=== PATIENT | male | born 1965 | race Caucasian/White ===

== ENCOUNTER 2025-06-05 07:14 | Outpatient (AMB) | payer OTHER, SELFPAY ==
[2025-06-05 07:17] VITALS: BP 124/58; PULSE 70; RESP 18; TEMP 36.6; O2SAT 97; BMI 26.0
--- NOTE | 2025-06-05 07:17 | MHC.OFFWIV ---
Intake Vital Signs 06/05/25 07:17 Height 5 ft 6 in Weight 161 lb BMI 26.0 BP 124/58 L Blood Pressure Location Rt brachial Position Sitting Respiration 18 Pulse 70 Pulse Source Pulse Oximeter Temp 98 F Temp Source Oral Pulse Oximetry (%) 97 Oxygen Delivery Method Room Air Intake Visit Reasons: [employer]ATIONS cough pain right lung when taking deep breath Intake Note: Patient presents c/o cough, pain in right chest (like a pulled muscle) when taking a deep breath, wheezing x10 days. Patient Tobacco Use Status: Current everyday Tobacco user Allergies No Known Allergies Allergy (Unverified 06/05/25 07:20) HPI HPI Comments History of Present Illness Details He presents to the office with cough x 1 week Associated clear phlegm He has associated R upper x 1 weeks Pain worse with deep breath No pain at rest Difficult to describe pain Trying to rest, Robitussin with temporary relief + fatigue without fever + congestion, worse in the morning No facial pressure or ear pain No shortness of breath PFSH Social History Patient Tobacco Use Status: Current everyday Tobacco user Review of Systems Const Denies body aches, Reports fatigue and Denies fever(s) ENT Denies dizziness, Denies otalgia, Reports nasal congestion and Denies sinus pain Card Reports chest pain (only with deep breath and cough) Resp Reports chest congestion and Reports cough Musc Denies myalgias Neuro Denies dizziness Endo Reports fatigue Physical Exam Exam Exam: General: Non-toxic, NAD. Speaking full sentences. Skin: Warm dry throughout Eye: EOMI HENT: Airway patent. Uvula midline. No pharyngeal erythema or edema. No [employer] DRYING. Bilateral canals clear. TM non-erythematous, non-bulging. No TM perforation or hemotympanum noted. Respiratory: CTA bilaterally. No wheezes, rales or rhonchi Cardiac: RRR. No murmur. No chest wall ttp. MSK: Full ROM extremities. Neurology: Alert. No aphasia or facial droop. Gait without abnormality Psych: Good mood and affect Vital Signs: Last Vital Signs Temp 98 F 06/05/25 07:17 Pulse 70 06/05/25 07:17 Resp 18 06/05/25 07:17 BP 124/58 L 06/05/25 07:17 Pulse Ox 97 06/05/25 07:17 Oxygen Delivery Method Room Air 06/05/25 07:17 BMI result Body Mass Index 26.0 Assessment & Plan Assessment & Plan (1) Pneumonia: Code(s): J18.9 - Pneumonia, unspecified organism Qualifiers: Pneumonia type: due to unspecified organism Laterality: right Lung location: upper lobe of lung Qualified Code(s): J18.9 - Pneumonia, unspecified organism Plan: Patient seen and evaluated. I thought lungs were CTA and did not appreciate crackles or decreased sounds. His vitals are stable and chest pain is not reproducible; less likely muscle. Symptoms appear consistent with early PNA We discussed chest xray but they are not open for another 30 minutes and pt wished to hold at this time Doxy with food. Avoid alcohol Tessalon for cough F/U with PCP Get chest xray if pain persistent even on antibiotics Patient gave verbal understanding and had no additional questions or concerns at time of discharge All questions answered Medications: New doxycycline hyclate 100 mg PO BID 20 caps 0RF benzonatate 100 mg PO BID-TID PRN 14 caps 0RF cough Coding Level of Care Code New Pt Level 3 (93986) Diagnoses Pneumonia of right upper lobe due to infectious organism J18.9 Pneumonia type: due to unspecified organism Laterality: right Lung location: upper lobe of lung
== END 2025-06-05 07:48 | disposition home or self-care (01) ==
PROVIDERS: Visit Provider Physician Assistant
DX: J18.9 Pneumonia, unspecified organism (principal)

== ENCOUNTER → 2025-06-05 07:14 | Outpatient (BNVA) | payer OTHER, SELFPAY | PROVIDERS: Visit Provider Physician Assistant | DX: J18.9 Pneumonia, unspecified organism (principal) | CPT/HCPCS: 99202 ==